=== PATIENT | female | born 1965 | race Caucasian/White ===

== ENCOUNTER 2024-06-13 17:59 | Inpatient (IN) ==
--- NOTE | 2024-06-13 18:14 | Emergency Department Note ---
Impression & Plan Anemia ADMIT ED Provider Note HPI: History obtained from patient. The patient is a 58-year-old female who presents the emergency department with a chief complaint of dyspnea on exertion for about the past month. Patient states that she has a chronic smoking history but the remainder of her health history is largely unknown because she does not follow with a doctor. Patient denies any chest pain and states that she has not had any chest pain with her episodes of dyspnea on exertion during this time. On arrival here to the ED the patient is tachycardic and moderately hypertensive, she is saturating well on room air, patient is afebrile on arrival. ROS: - Per HPI Differential Diagnosis: Acute CHF exacerbation, ACS, pulmonary embolism, pulmonary edema, pleural effusion, lung cancer, COPD with acute exacerbation, viral upper respiratory infection, bronchitis, amongst other potential pathologies. *Outpatient medications and allergy history reviewed. PE: General: Alert HEENT: Normocephalic, trachea midline Eyes: Extraocular eye movement is intact, no scleral erythema Pulmonary: Clear to auscultation bilaterally, no wheezing Cardio: Tachycardic rate with regular rhythm GI: Abdomen is soft to palpation, rectal examination performed with female RN at the bedside shows evidence of external hemorrhoids without any active bleeding, occult stool testing is positive : No suprapubic tenderness MSK: No evidence of trauma or malformation of the extremities, no edema Skin: No evidence of rash Neuro: Alert, no focal deficits Psychiatric: Cooperative INDEPENDENT INTERPRETATIONS: traffic monitor specialist: (As interpreted by myself): - An order was placed for continuous cardiac monitoring - Patient was noted to be in sinus rhythm with a rate of 108 EKG: (As interpreted by myself): Rate: 110 Rhythm: Sinus tachycardia Intervals: Within normal limits ST changes: No ST elevation Time: 1816 Chest x-ray: (As interpreted by myself): No acute disease Interventions provided in ED: -IV Protonix bolus and drip, packed red blood cell transfusion Medical Decision Making: IV was established and lab work obtained, patient was placed on compliance monitor. Lab work shows no leukocytosis, hemoglobin is low at 5.3, MCV is also low at 66, platelet count is elevated at 622, venous blood gas shows a normal pH, CMP does not show any critical findings, bilirubin is normal, renal function is normal, viral panel testing is pending at the time of admission. I do not see any evidence of any acute infiltrate on chest x-ray. On reassessment following the result of the patient's hemoglobin she does tell me that she has had some blood per rectum over the past month intermittently. I suspect this is the source of her anemia. Patient was consented for packed red blood cell transfusion given hemoglobin less than 7.0. She was also started on a Protonix drip and bolus. I discussed the patient's presentation with the on-call hospitalist, Dr. Quiñones, and the patient was accepted for inpatient care. Patient's D-dimer did return mildly elevated at 550 however with age adjustment this is negative, I also do not feel that PE is the likely diagnosis and I feel her symptoms are more likely secondary to symptomatic anemia. Patient was in agreement for admission, I discussed all of this with the patient and with her niece at the bedside. Patient was placed for admission in stable condition. Consultants/Discussions held with other healthcare providers: -Hospitalist, Dr. Quiñones Disposition discussion held by myself with: -Patient and patient's niece at the bedside Critical care time: 43 minutes -Stabilization of patient with critically low hemoglobin less than 7.0 and tachycardia requiring packed red blood cell transfusion, interpretation of diagnostic studies, discussion with other healthcare providers and arrangement of admission Diagnosis: 1. Symptomatic anemia, acute 2. Lower GI bleeding, acute Disposition: Admission Jerel Gary DO Emergency Medicine Past Med/Surg History Problem List (Updated 06/13/24 @ 19:56 by Jerel Gary DO) Anemia (Acute) Social History Smoking Status: Never smoker Feels Safe at Home: Yes Results & Data (ED) Vital Signs Vital Signs - 24 hr 06/13/24 18:04 06/13/24 18:10 06/13/24 18:18 Temperature 36.6 C Temperature Source Skin Pulse Rate 119 H Pulse Rate [Right Finger] 108 H Pulse Rhythm Regular Pulse Rhythm [Right Finger] Regular Pulse Strength Normal Pulse Strength [Right Finger] Normal Respiratory Rate 20 26 H Respiratory Effort / Characteristics Non-Labored Spontaneous Non-Labored Non-Labored Respiratory Depth Normal Normal Normal Respiratory Pattern Regular Regular Regular Blood Pressure 162/89 H Blood Pressure [Right Arm] 153/98 H Blood Pressure Mean 113 Blood Pressure Mean [Right Arm] 116 Pulse Oximetry 100 100 Oxygen Delivery Method Room Air Room Air Sepsis Recent Fever Within 48 Hours No Sepsis New/Unexplained Change in Mental Status N/A Sepsis Action Taken by Nursing No Action Required 06/13/24 18:21 Temperature Temperature Source Pulse Rate 107 H Pulse Rate [Right Finger] Pulse Rhythm Pulse Rhythm [Right Finger] Pulse Strength Pulse Strength [Right Finger] Respiratory Rate Respiratory Effort / Characteristics Respiratory Depth Respiratory Pattern Blood Pressure Blood Pressure [Right Arm] Blood Pressure Mean Blood Pressure Mean [Right Arm] Pulse Oximetry Oxygen Delivery Method Sepsis Recent Fever Within 48 Hours Sepsis New/Unexplained Change in Mental Status Sepsis Action Taken by Nursing Laboratory Data 06/13/24 18:25 06/13/24 18:25 Lab Results 06/13/24 06/13/24 06/13/24 Range/Units 18:25 18:37 18:54 WBC 7.31 (4.8-10.8) K/ul RBC 2.92 L (4.20-5.40) M/uL Hgb 5.3 L* (12.0-16.0) g/dl Hct 19.3 L* (37.0-47.0) % MCV 66.1 L (80.0-100.0) fL MCH 18.2 L (25.0-34.0) pg MCHC 27.5 L (32.0-36.0) g/dL RDW Std Deviation 51.9 H (36.4-46.3) fL RDW Coeff of Naya 22.1 H (11.5-14.5) % Plt Count 622 H (130-400) K/uL MPV 8.8 L (9.4-12.4) fL Absolute Nucleated RBC 0.02 (0.00-0.12) K/uL Nucleated RBC % (auto) 0.3 % Neutrophils % (Manual) 74 % Lymphocytes % (Manual) 16 % Monocytes % (Manual) 5 % Eosinophils % (Manual) 3 % Basophils % (Manual) 2 % Neutrophils # (Manual) 5.41 (1.40-6.50) K/uL Total Absolute Neuts 5.41 (1.4-6.5) K/uL Lymphocytes # (Manual) 1.17 L (1.2-3.4) K/uL Total Abs Lymphocytes 1.17 L (1.2-3.4) K/uL Monocytes # (Manual) 0.37 (0.11-0.59) K/uL Eosinophils # (Manual) 0.22 (0-0.50) K/uL Basophils # (Manual) 0.15 (0-0.2) K/uL Polychromasia 1+ Hypochromasia Present Anisocytosis Present Microcytosis Present Stomatocytes 1+ PT 9.9 (9.0-12.0) Seconds INR 0.9 (0.9-1.1) D-Dimer 550 H* (0-500) ug/L FEU VBG pH 7.37 (7.36-7.41) VBG pCO2 40 (38-50) mmHg VBG pO2 26 mmHg VBG HCO3 23 mmol/L VBG O2 Saturation < 60.0 % VBG Base Excess -2.0 mEq/L Sodium 139 (136-145) mmol/L Potassium 3.3 L (3.5-5.1) mmol/L Chloride 107 (98-107) mmol/L Carbon Dioxide 25 (21-32) mmol/L Anion Gap 7 (3-11) BUN 12 (6-23) mg/dl Creatinine 0.65 (0.6-1.2) mg/dl Est Cr Clr Drug Dosing 78.0 ml/min eGFR 103.27 BUN/Creatinine Ratio 18.5 (10-20) Glucose 106 H (70-99(Fasting)) mg/dl Calcium 8.8 (8.6-10.3) mg/dl Total Bilirubin 0.4 (0.2-1.0) mg/dl AST 17 (13-39) U/L ALT 12 (7-52) U/L Alkaline Phosphatase 71 (34-104) U/L Troponin I High Sens 4.8 (0-14) pg/ml B-Natriuretic Peptide 54 (0-100) pg/ml Total Protein 7.0 (6.0-8.3) gm/dl Albumin 4.4 (3.4-5.0) gm/dl Globulin 2.6 (2.5-4.0) gm/dl Albumin/Globulin Ratio 1.7 (0.9-2) Blood Type O Positive Blood Type Recheck Antibody Screen NEGATIVE Crossmatch See Detail 06/13/24 Range/Units 18:55 WBC (4.8-10.8) K/ul RBC (4.20-5.40) M/uL Hgb (12.0-16.0) g/dl Hct (37.0-47.0) % MCV (80.0-100.0) fL MCH (25.0-34.0) pg MCHC (32.0-36.0) g/dL RDW Std Deviation (36.4-46.3) fL RDW Coeff of Naya (11.5-14.5) % Plt Count (130-400) K/uL MPV (9.4-12.4) fL Absolute Nucleated RBC (0.00-0.12) K/uL Nucleated RBC % (auto) % Neutrophils % (Manual) % Lymphocytes % (Manual) % Monocytes % (Manual) % Eosinophils % (Manual) % Basophils % (Manual) % Neutrophils # (Manual) (1.40-6.50) K/uL Total Absolute Neuts (1.4-6.5) K/uL Lymphocytes # (Manual) (1.2-3.4) K/uL Total Abs Lymphocytes (1.2-3.4) K/uL Monocytes # (Manual) (0.11-0.59) K/uL Eosinophils # (Manual) (0-0.50) K/uL Basophils # (Manual) (0-0.2) K/uL Polychromasia Hypochromasia Anisocytosis Microcytosis Stomatocytes PT (9.0-12.0) Seconds INR (0.9-1.1) D-Dimer (0-500) ug/L FEU VBG pH (7.36-7.41) VBG pCO2 (38-50) mmHg VBG pO2 mmHg VBG HCO3 mmol/L VBG O2 Saturation % VBG Base Excess mEq/L Sodium (136-145) mmol/L Potassium (3.5-5.1) mmol/L Chloride (98-107) mmol/L Carbon Dioxide (21-32) mmol/L Anion Gap (3-11) BUN (6-23) mg/dl Creatinine (0.6-1.2) mg/dl Est Cr Clr Drug Dosing ml/min eGFR BUN/Creatinine Ratio (10-20) Glucose (70-99(Fasting)) mg/dl Calcium (8.6-10.3) mg/dl Total Bilirubin (0.2-1.0) mg/dl AST (13-39) U/L ALT (7-52) U/L Alkaline Phosphatase (34-104) U/L Troponin I High Sens (0-14) pg/ml B-Natriuretic Peptide (0-100) pg/ml Total Protein (6.0-8.3) gm/dl Albumin (3.4-5.0) gm/dl Globulin (2.5-4.0) gm/dl Albumin/Globulin Ratio (0.9-2) Blood Type Blood Type Recheck O Positive Antibody Screen Crossmatch Administered Medications Discontinued Medications Pantoprazole Sodium 80 mg/ (Dextrose) 120 mls @ 480 mls/hr IV NOW ONE Stop: 06/13/24 19:20 Last Admin: 06/13/24 19:29 Dose: 480 mls/hr Documented By: MONIQUE Pantoprazole Sodium (Pantoprazole Bolus/Drip) 1 each IV NOW STA Stop: 06/13/24 19:07 Last Admin: 06/13/24 19:33 Dose: 1 each Documented By: MONIQUE Imaging Data Radiologist's Impression: Chest X-Ray 06/13/24 18:12 EXAM: XR chest 1V portable CLINICAL HISTORY: DYSPNEA KIS/HJB TECHNIQUE: An X-ray image of the chest is obtained in AP portable projection. COMPARISON: No prior studies are available for comparison. FINDINGS: Pulmonary Parenchyma: Accentuated vascular markings. No evidence of consolidation, collapse, or focal opacities. No pulmonary nodules are identified. No evidence of pleural effusion or pleural thickening. Heart and Mediastinum: Heart size and shape are normal. No mediastinal widening or masses. Prominent hilar vascular shadows. Bony Thorax: The bony thorax appears intact without fractures or deformities. Soft Tissues: Soft tissues overlying the chest wall are unremarkable. IMPRESSION: Accentuated vascular markings with prominent hilar vascular shadows. Correlate with clinical findings. Electronically signed by Cullen Vera 06-13-2024 7:14 PM Discharge Plan Visit Data Chief Complaint: Shortness of Breath/Dyspnea Stated Complaint: SOB, RAPID HEART BEAT, HEADACHES ED Provider: Jerel Gary Discharge Problem: Anemia Forms Stand Alone Forms: [facility] Referrals Referrals: PCP,NO [Primary Care Provider] -
[2024-06-13 18:42] LABS: HCO3 VBG 23 mmol/L; Oxygen Saturation VBG < 60.0 %; PCO2 VBG 40 mmHg (38-50); PO2 VBG 26 mmHg; pH VBG 7.37 (7.36-7.41)
[2024-06-13] MEDS ORDERED: SODIUM CHLORIDE 0.9% 50 ML IV PRN ×2 (18:42→21:03)
[2024-06-13 18:44] LABS: Hematocrit (blood only) 19.3 % (37.0-47.0); Hemoglobin 5.3 g/dl (12.0-16.0); Mean Corpuscular Hemoglobin 18.2 pg (25.0-34.0); Mean Corpuscular Hgb Conc 27.5 g/dL (32.0-36.0); Mean Corpuscular Volume 66.1 fL (80.0-100.0); Mean Platelet Volume 8.8 fL (9.4-12.4); Nucleated RBC # (auto) 0.02 K/uL (0.00-0.12); Nucleated RBC % (auto) 0.3 %; Platelet Count 622 K/uL (130-400); RDW Coefficient of Variation 22.1 % (11.5-14.5); RDW Standard Deviation 51.9 fL (36.4-46.3); Red Blood Count 2.92 M/uL (4.20-5.40); White Blood Count 7.31 K/ul (4.8-10.8)
[2024-06-13 18:57] LABS: Albumin Globulin Ratio 1.7 (0.9-2); Albumin Level 4.4 gm/dl (3.4-5.0); BUN Creatinine Ratio 18.5 (10-20); Bilirubin,Total 0.4 mg/dl (0.2-1.0); Calcium 8.8 mg/dl (8.6-10.3); Globulin 2.6 gm/dl (2.5-4.0); Potassium 3.3 mmol/L (3.5-5.1)
[2024-06-13 19:01] LABS: ALC (manual) 1.17 K/uL (1.2-3.4); ANC (manual) 5.41 K/uL (1.4-6.5); Anisocytosis Present; Basophils # (manual) 0.15 K/uL (0-0.2); Basophils % (manual) 2 %; Eosinophils # (manual) 0.22 K/uL (0-0.50); Eosinophils % (manual) 3 %; Hypochromasia Present; Lymphocytes # (manual) 1.17 K/uL (1.2-3.4); Lymphocytes % (manual) 16 %; Microcytosis Present; Monocytes # (manual) 0.37 K/uL (0.11-0.59); Monocytes % (manual) 5 %; Neutrophils # (manual) 5.41 K/uL (1.40-6.50); Neutrophils % (manual) 74 %; Polychromasia 1+; Stomatocytes 1+
[2024-06-13 19:03] LABS: Troponin I High Sensitivity 4.8 pg/ml (0-14)
[2024-06-13 19:06] LABS: INR 0.9 (0.9-1.1); Prothrombin Time 9.9 Seconds (9.0-12.0)
--- NOTE | 2024-06-13 19:15 | XRay Report ---
EXAM: XR chest 1V portable CLINICAL HISTORY: DYSPNEA KIS/HJB TECHNIQUE: An X-ray image of the chest is obtained in AP portable projection. COMPARISON: No prior studies are available for comparison. FINDINGS: Pulmonary Parenchyma: Accentuated vascular markings. No evidence of consolidation, collapse, or focal opacities. No pulmonary nodules are identified. No evidence of pleural effusion or pleural thickening. Heart and Mediastinum: Heart size and shape are normal. No mediastinal widening or masses. Prominent hilar vascular shadows. Bony Thorax: The bony thorax appears intact without fractures or deformities. Soft Tissues: Soft tissues overlying the chest wall are unremarkable. IMPRESSION: Accentuated vascular markings with prominent hilar vascular shadows. Correlate with clinical findings. Electronically signed by Cullen Vera 06-13-2024 7:14 PM
[2024-06-13 19:17] LABS: D Dimer 550 ug/L FEU (0-500)
[2024-06-13 19:27] LABS: Adenovirus PCR Not Detected (NotDetected); Bordetella parapertussis PCR Not Detected (NotDetected); Bordetella pertussis PCR Not Detected (NotDetected); Chlamydia pneumoniae PCR Not Detected (NotDetected); Coronavirus 229E PCR Not Detected (NotDetected); Coronavirus CoV-2 (COVID19)PCR Not Detected (NotDetected); Coronavirus HKU1 PCR Not Detected (NotDetected); Coronavirus NL63 PCR Not Detected (NotDetected); Coronavirus OC43PCR Not Detected (NotDetected); Human Metapneumovirus PCR Not Detected (NotDetected); Influenza A PCR Not Detected (NotDetected); Influenza B PCR Not Detected (NotDetected); Mycoplasma pneumoniae PCR Not Detected (NotDetected); Parainfluenza Virus 1 PCR Not Detected (NotDetected); Parainfluenza Virus 2 PCR Not Detected (NotDetected); Parainfluenza Virus 3 PCR Not Detected (NotDetected); Parainfluenza Virus 4 PCR Not Detected (NotDetected); Respiratory Syncytial VirusPCR Not Detected (NotDetected); Rhinovirus/Enterovirus PCR DETECTED (NotDetected)
[2024-06-13] MEDS: PANTOprazole 80 MG in DEXTROSE 5% 100 ML IV ONE (19:29)
[2024-06-13] MEDS: PANTOPRAZOLE BOLUS/DRIP IV STA (19:33)
[2024-06-13] MEDS: PANTOprazole 40 MG in DEXTROSE 5% MINI-B 100 ML IV SCH (19:59)
--- NOTE | 2024-06-13 20:10 | History & Physical Report ---
Date of Service June 13, 2024 Assessment & Plan (1) Anemia: Plan: - presenting with Hgb= 5.3, ordered 2 units pRBC in the ED - presumed GI bleed with melena/blood BMs x 1 years-> likely slow bleed - will put in an additional 1 unit pRBC on hold - transfusion threshold 7 - currently mildly tachycardia, not hypotensive - consult GI; NPO pending eval - trend q6 H&H - iron studies pending - CT A&P with IV at Oral contrast pending (2) Thrombocytosis: Plan: - plts= 622 - likely secondary to the setting of anemia - continue to trend (3) Tobacco use: Plan: - 30+ packs years - nicotine patch ordered (4) Hypokalemia: Plan: - K= 3.3; replete x 20mg IV KCl - continue to trend (5) Elevated d-dimer: Plan: - d-dimer= 550 - age adjusted cut off- 560-> VTE unlikely (6) Rhinovirus: Plan: - asymptomatic - droplet precuations Plan Has not seen a doctor in 30 years-> fasting lipi d panel and hemoglobin a1c pending qAM Diet: NPO pending GI eval Code: Full Vte Prophylaxis: defer chemical given presumed GI bleed/anemia, SCD Dispo: PCU History of Present Illness Primary Care Provider: NO PCP 58 year old female presenting with progressive dyspnea. She states that for over a year she has been having both dark and bloody stools. Over the past month has started to noticed increased dyspnea with exertion and lightheadedness. Niece encouraged her to come to the ER today to be evaluated. Denies abdominal pain, nausea/vomiting. Denies chest pain. Has not been to a doctor in over 30 years. Only medication/supplement she takes is Tylenol prn for headaches. Notes that she had a hysterectomy in her 30s and a C Section- but not other past surgical/medical history. 30+ year pack history- currently smoking 1 pack per day. Denies any other substance/alcohol use. Denies NSAID use. Denies family history of colon cancer, IBD. ED Course Significant for: Hbg= 5.3, Plts= 622, K= 3.3, D Dimer= 550. EKG with sinus tachycardia HR 110s, no acute ischemic changes. Allergies Allergy/AdvReac Type Severity Reaction Status Date / Time No Known Allergies Allergy Unverified 06/13/24 21:12 Past Med/Surg History Problem List Rhinovirus Elevated d-dimer Hypokalemia Tobacco use Thrombocytosis Anemia (Acute) Surgical History History of H/O: hysterectomy Social History Smoking Status: Current every day smoker Tobacco Type: Cigarettes Age Started Using Tobacco: 15; packs per day: 0.5; Cigarettes Per Day: 1-1/2 pack; Hx Alcohol Use: No Hx Substance Use: No Preferred Language: Citizen Of [place] Communication Ability: Effective Section Laborer Required: No Beliefs That Will Affect Care: None Current Living Situation: Spouse Other Information That Helps Us Care for You: No Feels Safe at Home: Yes Safety Concerns: Feels Safe At This Time Assistive Devices: None Review of Systems Review of Systems: As per above Physical Exam Physical Exam: Constitutional: well-appearing, no acute distress HEENT: NCAT, no conjunctival injection CV: regular rhythm, no murmur appreciated, extremities well-perfused, no LE edema Resp: CTABL, no wheezes/rales/rhonchi appreciated, no increased work of breathing GI: soft, nondistended, nontender MSK: no gross deformities appreciated Skin: warm, dry, no rash appreciated Neuro: alert, oriented, no focal neurologic deficit appreciated Results & Data Results & Data Vital Signs (Past 12 Hours) Vital Signs Temp Pulse Pulse Resp BP BP Pulse Ox 06/13/24 18:21 107 H 06/13/24 18:18 108 H 26 H 153/98 H 100 06/13/24 18:04 36.6 C 119 H 20 162/89 H 100 O2 Del Method 06/13/24 18:21 06/13/24 18:18 Room Air 06/13/24 18:04 Room Air Laboratory Results Laboratory Results WBC 7.31 K/ul (4.8-10.8) 06/13/24 18:25 RBC 2.92 M/uL (4.20-5.40) L 06/13/24 18:25 Hgb 5.3 g/dl (12.0-16.0) L* 06/13/24 18:25 Hct 19.3 % (37.0-47.0) L* 06/13/24 18:25 MCV 66.1 fL (80.0-100.0) L 06/13/24 18:25 MCH 18.2 pg (25.0-34.0) L 06/13/24 18: MCHC 27.5 g/dL (32.0-36.0) L 06/13/24 18: RDW Std Deviation 51.9 fL (36.4-46.3) H 06/13/24 18: RDW Coeff of Naya 22.1 % (11.5-14.5) H 06/13/24 18: Plt Count 622 K/uL (130-400) H 06/13/24 18:25 MPV 8.8 fL (9.4-12.4) L 06/13/24 18: Absolute Nucleated RBC 0.02 K/uL (0.00-0.12) 06/13/24 18: Nucleated RBC % (auto) 0.3 % 06/13/24 18:25 Neutrophils % (Manual) 74 % 06/13/24 18:25 Lymphocytes % (Manual) 16 % 06/13/24 18:25 Monocytes % (Manual) 5 % 06/13/24 18:25 Eosinophils % (Manual) 3 % 06/13/24 18:25 Basophils % (Manual) 2 % 06/13/24 18:25 Neutrophils # (Manual) 5.41 K/uL (1.40-6.50) 06/13/24 18:25 Total Absolute Neuts 5.41 K/uL (1.4-6.5) 06/13/24 18: Lymphocytes # (Manual) 1.17 K/uL (1.2-3.4) L 06/13/24 18:25 Total Abs Lymphocytes 1.17 K/uL (1.2-3.4) L 06/13/24 18:25 Monocytes # (Manual) 0.37 K/uL (0.11-0.59) 06/13/24 18: Eosinophils # (Manual) 0.22 K/uL (0-0.50) 06/13/24 18:25 Basophils # (Manual) 0.15 K/uL (0-0.2) 06/13/24 18:25 Polychromasia 1+ 06/13/24 18:25 Hypochromasia Present 06/13/24 18:25 Anisocytosis Present 06/13/24 18:25 Microcytosis Present 06/13/24 18:25 Stomatocytes 1+ 06/13/24 18:25 PT 9.9 Seconds (9.0-12.0) 06/13/24 18:25 INR 0.9 (0.9-1.1) 06/13/24 18:25 D-Dimer 550 ug/L FEU (0-500) H* 06/13/24 18:25 VBG pH 7.37 (7.36-7.41) 06/13/24 18:37 VBG pCO2 40 mmHg (38-50) 06/13/24 18:37 VBG pO2 26 mmHg 06/13/24 18:37 VBG HCO3 23 mmol/L 06/13/24 18:37 VBG O2 Saturation < 60.0 % 06/13/24 18:37 VBG Base Excess -2.0 mEq/L 06/13/24 18:37 Sodium 139 mmol/L (136-145) 06/13/24 18:25 Potassium 3.3 mmol/L (3.5-5.1) L 06/13/24 18:25 Chloride 107 mmol/L (98-107) 06/13/24 18:25 Carbon Dioxide 25 mmol/L (21-32) 06/13/24 18:25 Anion Gap 7 (3-11) 06/13/24 18:25 BUN 12 mg/dl (6-23) 06/13/24 18:25 Creatinine 0.65 mg/dl (0.6-1.2) 06/13/24 18:25 Est Cr Clr Drug Dosing 78.0 ml/min 06/13/24 18:25 eGFR 103.27 06/13/24 18:25 BUN/Creatinine Ratio 18.5 (10-20) 06/13/24 18:25 Glucose 106 mg/dl (70-99(Fasting)) H 06/13/24 18:25 Calcium 8.8 mg/dl (8.6-10.3) 06/13/24 18:25 Total Bilirubin 0.4 mg/dl (0.2-1.0) 06/13/24 18:25 AST 17 U/L (13-39) 06/13/24 18:25 ALT 12 U/L (7-52) 06/13/24 18:25 Alkaline Phosphatase 71 U/L (34-104) 06/13/24 18:25 Troponin I High Sens 4.8 pg/ml (0-14) 06/13/24 18: B-Natriuretic Peptide 54 pg/ml (0-100) 06/13/24 18:25 Total Protein 7.0 gm/dl (6.0-8.3) 06/13/24 18:25 Albumin 4.4 gm/dl (3.4-5.0) 06/13/24 18: Globulin 2.6 gm/dl (2.5-4.0) 06/13/24 18: Albumin/Globulin Ratio 1.7 (0.9-2) 06/13/24 18:25 Urine Color Yellow 06/13/24 Unknown Urine Appearance Clear (Clear) 06/13/24 Unknown Urine pH 5.5 (4.5-7.5) 06/13/24 Unknown Ur Specific [place] 1.009 (1.000-1.030) 06/13/24 Unknown Urine Protein Negative (Negative) 06/13/24 Unknown Urine Glucose (UA) Negative (Negative) 06/13/24 Unknown Urine Ketones Negative (Negative) 06/13/24 Unknown Urine Blood Negative (Negative) 06/13/24 Unknown Urine Nitrite Negative (Negative) 06/13/24 Unknown Urine Bilirubin Negative (Negative) 06/13/24 Unknown Urine Urobilinogen Negative (Negative) 06/13/24 Unknown Ur Leukocyte Esterase Negative (Negative) 06/13/24 Unknown Adenovirus (PCR) Not Detected (NotDetected) 06/13/24 18:20 B. pertussis DNA (PCR) Not Detected (NotDetected) 06/13/24 18:20 B.parapertussis DNA PCR Not Detected (NotDetected) 06/13/24 18:20 C. pneumoniae DNA (PCR) Not Detected (NotDetected) 06/13/24 18:20 Coronavirus OC43 (PCR) Not Detected (NotDetected) 06/13/24 18:20 Coronavirus HKU1 (PCR) Not Detected (NotDetected) 06/13/24 18:20 Coronavirus 229E (PCR) Not Detected (NotDetected) 06/13/24 18:20 SARS-CoV-2 (PCR) Not Detected (NotDetected) 06/13/24 18:20 Coronavirus NL63 (PCR) Not Detected (NotDetected) 06/13/24 18:20 Human Metapneumovir PCR Not Detected (NotDetected) 06/13/24 18:20 Influenza Type A (PCR) Not Detected (NotDetected) 06/13/24 18:20 Influenza Type B (PCR) Not Detected (NotDetected) 06/13/24 18:20 M. pneumoniae (PCR) Not Detected (NotDetected) 06/13/24 18:20 Parainfluenza 1 (PCR) Not Detected (NotDetected) 06/13/24 18:20 Parainfluenza 2 (PCR) Not Detected (NotDetected) 06/13/24 18:20 Parainfluenza 3 (PCR) Not Detected (NotDetected) 06/13/24 18:20 Parainfluenza 4 (PCR) Not Detected (NotDetected) 06/13/24 18:20 RSV (PCR) Not Detected (NotDetected) 06/13/24 18:20 Entero/Rhino (PCR) DETECTED (NotDetected) A 06/13/24 18:20 Blood Type O Positive 06/13/24 18:54 Blood Type Recheck O Positive 06/13/24 18:55 Antibody Screen NEGATIVE 06/13/24 18:54 Crossmatch See Detail 06/13/24 18:54 Impressions Chest X-Ray 06/13/24 18:12 EXAM: XR chest 1V portable CLINICAL HISTORY: DYSPNEA KIS/HJB TECHNIQUE: An X-ray image of the chest is obtained in AP portable projection. COMPARISON: No prior studies are available for comparison. FINDINGS: Pulmonary Parenchyma: Accentuated vascular markings. No evidence of consolidation, collapse, or focal opacities. No pulmonary nodules are identified. No evidence of pleural effusion or pleural thickening. Heart and Mediastinum: Heart size and shape are normal. No mediastinal widening or masses. Prominent hilar vascular shadows. Bony Thorax: The bony thorax appears intact without fractures or deformities. Soft Tissues: Soft tissues overlying the chest wall are unremarkable. IMPRESSION: Accentuated vascular markings with prominent hilar vascular shadows. Correlate with clinical findings. Electronically signed by Cullen Vera 06-13-2024 7:14 PM Supervising Physician Co-Signing Physician Notes Patient seen and examined, chart reviewed, case discussed with Dr. Urbina and I agree with the assessment and plan as above. Patient with longstanding history of melenic and BRBPR Symptomatic anemia on presentation requiring transfusion On exam patient is resting comfortably +pallor +S1/S2, regular, no m/r/g Lungs CTA Abd soft, NT/ND Ext - warm, well perfused Labs and images reviewed, microcytic hypochromic anemia CT Abdomen/Pelvis pending Assessment/Plan -Transfusion as above -GI consult -CT abdomen pelvis pending -Routine screening including A1C and lipids -Patient is scheduled to establish with PCP in [place] -Remainder as above Resident Activity Tracking Resident Involvement: Resident Care Provided Care Provided: Adult Hospital Medicine
[2024-06-13] MEDS: NICOTINE 21 MG/24 HR TDSY TD SCH (20:48)
[2024-06-13] MEDS ORDERED: SODIUM CHLORIDE 0.9% 100 ML IV PRN (21:03)
[2024-06-13] MEDS: Patient's ALLERGY Info needs ENTERED STA (21:37)
[2024-06-13] MEDS: POTASSIUM CHLORIDE / WTR 10 MEQ/100 ML PLCT IV SCH (21:37)
[2024-06-13 21:40] LABS: Appearance Urine Clear (Clear); Bilirubin Urine Negative (Negative); Blood Urine Negative (Negative); Color Urine Yellow; Glucose Urine UA Negative (Negative); Ketones Urine Negative (Negative); Leukocyte Esterase Urine Negative (Negative); Nitrite Urine Negative (Negative); Protein Urine Negative (Negative); Specific Gravity Urine 1.009 (1.000-1.030); Urobilinogen Urine Negative (Negative); pH Urine 5.5 (4.5-7.5)
[2024-06-13] MEDS: SODIUM CHLORIDE 0.9% 100 ML IV PRN (22:11)
--- NOTE | 2024-06-14 01:48 | Billing Data ---
Date of Service June 13, 2024 Coding Level of Care Code 63511 INT INP/OBS CARE
[2024-06-14 02:16] LABS: Hematocrit (blood only) 26.3 % (37.0-47.0); Hemoglobin 7.7 g/dl (12.0-16.0)
[2024-06-14 02:21] LABS: BUN Creatinine Ratio 13.8 (10-20); Calcium 8.5 mg/dl (8.6-10.3); Creatinine Clr Calc Pharmacy 87.6 ml/min; Potassium 3.8 mmol/L (3.5-5.1)
[2024-06-14 02:40] LABS: Ferritin 2.8 ng/ml (8-388)
[2024-06-14 02:54] LABS: Chol HDL Ratio 2.1 (0-5)
[2024-06-14 07:46] LABS: Hematocrit (blood only) 26.8 % (37.0-47.0)
[2024-06-14 07:48] LABS: Estimated Average Glucose 126 mg/dl
--- NOTE | 2024-06-14 08:32 | Hospitalist Progress Note ---
Date of Service June 14, 2024 Assessment & Plan (1) Anemia: Plan: Patient with longstanding history of melenic and BRBPR, presented with dyspnea on exertion Symptomatic anemia on presentation requiring transfusion Symptomatic iron deficiency anemia. ferritin 2.8/7% sat -transfused 2 units RBCs Hg 5.3-->8 - will order 200 mg of iron sucrose Acute on chronic gastrointestinal bleeding - based on H/H trend seems to be slow, remains tachycardic but improved -CT abdomen and pelvis with contrast was ordered by admitting team -PPI drip, serial H/H -consulted gastroenterology - reviewed recs in note, EGD/colonoscopy tomorrow tachycardia improved but persists - check TSH - normal (2) Thrombocytosis: Plan: - plts= 622 Caused by iron deficiency anemia (3) Tobacco use: Plan: - 30+ packs years - nicotine patch ordered (4) Hypokalemia: Plan: replaced, 3.8 today (5) Rhinovirus: Plan: - asymptomatic - droplet precuations Plan Has not seen a doctor in 30 years-> fasting lipid panel ok and hemoglobin a1c 6.0% -discussed prediabetes with her Vte Prophylaxis: SCD recently in process to enroll in medicaid working on establish PCP in [place] Admission and Anticipated Discharge Date Admission Date: June 13, 2024 Subjective Has had intermittent bloody stool without abdominal pain for up to a year. She thinks its her hemorrhoids but by description sometimes its maroon Has had dark stools but not vicky melena dyspnea and lightheadedness improved after transfusion Physical Exam 2 Physical Exam: PHYSICAL EXAMINATION Last 24h vital signs reviewed, see documentation in flowsheet General: comfortable appearing, no distress HEENT: Normocephalic, atraumatic, pupils round and equal, sclerae anicteric, no conjunctival injection, moist mucus membranes Lungs: Normal respiratory effort. Clear to auscultation bilaterally. No RRW Heart: Regular rate and rhythm, no murmurs. No JVD Abdomen: Soft, nontender, nondistended. Bowel sounds present. Extremities: Warm, dry, well-perfused. No extremity edema. Neuro: Alert and oriented x 4, face symmetric, moves 4 extremities well Psych: Normal affect and behavior Results & Data Results & Data Vital Signs (Past 12 Hours) Vital Signs Temp Pulse Pulse Resp BP BP BP 06/14/24 07:38 98.1 F 94 H 20 153/94 H 06/14/24 03:21 98.1 F 103 H 18 125/74 06/14/24 00:28 97.7 F 99 H 20 133/74 06/14/24 00:17 97.9 F 97 H 18 149/82 H 06/13/24 23:17 97.7 F 103 H 20 142/81 H 06/13/24 22:54 06/13/24 22:47 98.1 F 102 H 20 152/90 H 06/13/24 22:32 98.2 F 100 H 21 150/88 H 06/13/24 22:18 101 H 06/13/24 22:16 98.1 F 104 H 22 06/13/24 22:09 98.1 F 99 H 22 149/85 H 06/13/24 21:14 110 H 06/13/24 21:10 98.1 F 110 H 16 162/90 H 06/13/24 20:40 98.2 F 110 H 30 H 133/79 06/13/24 20:25 98.2 F 108 H 29 H 134/79 Pulse Ox O2 Del Method 06/14/24 07:38 99 Room Air 06/14/24 03:21 97 Room Air 06/14/24 00:28 99 06/14/24 00:17 100 06/13/24 23:17 98 06/13/24 22:54 Room Air 06/13/24 22:47 98 06/13/24 22:32 100 06/13/24 22:18 06/13/24 22:16 99 06/13/24 22:09 98 06/13/24 21:14 06/13/24 21:10 100 06/13/24 20:40 100 06/13/24 20:25 100 Laboratory Results 06/14/24 05:25 06/14/24 01:37 PG Care Time/CCT Total # of Minutes Spent Total Time Spent with Patient: Total time spent is greater than 50% in coordination of care (as documented) at patient's floor/unit and/or counseling patient: Coding Level of Care Code 08403 SUB INP/OBS CARE 3/50MIN Diagnoses Anemia D64.9 Thrombocytosis D75.839 Tobacco use Z72.0 Hypokalemia E87.6 Rhinovirus B34.8
[2024-06-14] MEDS ORDERED: NICOTINE 21 MG/24 HR TDSY TD SCH (09:00)
[2024-06-14] MEDS: OPTIRAY 320 100ml IV ONE (09:57)
--- NOTE | 2024-06-14 10:16 | CT Scan Report ---
EXAM: CT Abdomen and Pelvis With Intravenous Contrast INDICATION: Anemia. TECHNIQUE: Axial computed tomography images of the abdomen and pelvis with intravenous contrast. Sagittal and coronal reformatted images were created and reviewed. This CT exam was performed using one or more of the following dose reduction techniques: automated exposure control, adjustment of the mA and/or kV according to patient size, and/or use of iterative reconstruction technique. Oral contrast was administered. CONTRAST: 90 ml of Optiray 320 was administered intravenously. COMPARISON: No relevant prior studies available. FINDINGS: Limitations: None. Lung bases: No abnormality noted. Pleural space: No visualized pleural effusion or pneumothorax. Heart: No abnormality noted. Mediastinum: No abnormality noted. ABDOMEN: Liver: The liver is enlarged to 20.6 cm that is mildly fatty. Smooth contour. No ductal dilatation. Gallbladder and bile ducts: No calcified stones or surrounding fluid. Pancreas: Homogeneous enhancement. No mass, inflammation or ductal dilation. Spleen: No significant abnormality noted. Adrenals: No significant abnormality noted. Kidneys and ureters: Normal enhancement. No mass, hydronephrosis or visualized stone. Stomach and bowel: Normal appearance of the collapsed stomach. There are multiple sigmoid diverticula. There is mild diverticulitis of an antimesenteric surface diverticulum in the sigmoid colon seen on series 3 image 263. Colonic mucosal masses are not optimally detected in the presence of stool. There is a polypoid soft tissue density in the sigmoid turn which measures 1 cm-series 3 image 225. No intestinal obstruction. PELVIS: Appendix: Well seen and appears normal. Bladder: No filling defects to suggest mass or large stone. No inflammation. Reproductive: Hysterectomy. ABDOMEN and PELVIS: Intraperitoneal space: No free air. No significant fluid collection. Bones/joints: There is degenerative change in the spine. There is slightly asymmetric to the left disc herniation at L5-S1 with l impingement on the origin of the left S1 nerve root. Soft tissues: No significant abnormality noted. Vasculature: Minimal atherosclerotic plaque in the aorta and branches. No aneurysm or dissection. Lymph nodes: No pathologically enlarged lymph nodes. IMPRESSION: 1. There is mild acute sigmoid diverticulitis without complication. 2. Detection of colonic mucosal masses limited in the presence of stool. There could be a polyp versus adherent stool in the sigmoid turn. Colonic screening recommended if not recently performed. 3. Hepatomegaly and mild steatosis. ACT 112: Negative or not required by law. Electronically signed by Haylie Murrell 06-14-2024 10:16 AM
--- NOTE | 2024-06-14 10:53 | Gastrointestinal Consultation ---
Date of Consultation June 14, 2024 Assessment & Plan (1) Anemia: 58-year-old female presenting with symptoms related to iron deficiency anemia. The patient does have a very low MCV which suggest that this may be a chronic process. I think it would be prudent to proceed with upper endoscopy and colon oscopy. Based on her symptoms I wonder about a colonic etiology such as a mass or polyp Plan 1) Upper endoscopy Saturday 2) Colonoscopy Saturday 3) N.p.o. at midnight 4) May have clear liquids today 4) Bowel preparation written History of Present Illness Reason for Consultation: Anemia Requesting Physician: Dr. Lin Attending Physician: Jeanie Lin MD History of Present Illness The patient is a 58-year-old female with a long history of tobacco use who presented to the emergency room with worsening fatigue and shortness of breath. She notes that she has had symptoms of irregular bowel habits, she has had dark Stool without stickiness in addition to occasional episodes of hematochezia. This has been ongoing for at least 12 months. The patient has never had an upper endoscopy nor colonoscopy. Her past surgical history is notable for a C- section. There is no family history of stomach cancer or colon cancer. She denies having fevers chills sweats or any significant weight loss. Allergies Allergy/AdvReac Type Severity Reaction Status Date / Time No Known Allergies Allergy Unverified 06/13/24 21:12 Patient History Surgical History History of H/O: hysterectomy Social History Smoking Status: Current every day smoker Tobacco Type: Cigarettes Age Started Using Tobacco: 15; packs per day: 0.5; Cigarettes Per Day: 1-1/2 pack; Hx Alcohol Use: No Hx Substance Use: No Preferred Language: Maltese Communication Ability: Effective Rehab Office Coordinator Required: No Beliefs That Will Affect Care: None Current Living Situation: Spouse Other Information That Helps Us Care for You: No Feels Safe at Home: Yes Safety Concerns: Feels Safe At This Time Assistive Devices: None Review of Systems Constitutional: + malaise; no fever, no sweats and no we ight loss Eyes: no diplopia Ear, Nose, Mouth, Throat: no foul smell and no mouth lesions Respiratory: + dyspnea on exertion; no cough, no hemo ptysis and no wheezing Cardiovascular: + dyspnea on exertion; no chest pain wit h activity Gastrointestinal: no abdominal pain, no bloating, no early satiety, no nausea, no coffee ground emesis, no hematemesis and no dysphagia Neurologic: no falls Endocrine: no polydipsia and no cold intolerance Hematologic / Lymphatic: no easy bleeding, no coagulopathy and no unexplained weight loss Physical Exam Constitutional: + thin; no acute distress Eyes: PERRL, conjunctivae normal, anicteric sclerae ENMT: external ear and nose normal, oropharynx normal Respiratory: normal respiratory effort, lungs clear to auscultation Cardiovascular: Rate/Rhythm: regular rate and regular rhythm Gastrointestinal (Abdomen): normal bowel sounds, soft, nontender, no hepatosplenomegaly Results & Data Vital Signs (Past 12 Hours) Vital Signs Temp Pulse Pulse Resp BP BP BP 06/14/24 07:38 36.7 C 94 H 20 153/94 H 06/14/24 03:21 36.7 C 103 H 18 125/74 06/14/24 00:28 36.5 C 99 H 20 133/74 06/14/24 00:17 36.6 C 97 H 18 149/82 H 06/13/24 23:17 36.5 C 103 H 20 142/81 H 06/13/24 22:54 06/13/24 22:47 36.7 C 102 H 20 152/90 H Pulse Ox O2 Del Method 06/14/24 07:38 99 Room Air 06/14/24 03:21 97 Room Air 06/14/24 00:28 99 06/14/24 00:17 100 06/13/24 23:17 98 06/13/24 22:54 Room Air 06/13/24 22:47 98 Laboratory Results Laboratory Results - last 24 hr 06/13/24 06/13/24 06/13/24 18:20 18:25 18:37 WBC 7.31 RBC 2.92 L Hgb 5.3 L* Hct 19.3 L* MCV 66.1 L MCH 18.2 L MCHC 27.5 L RDW Std Deviation 51.9 H RDW Coeff of Naya 22.1 H Plt Count 622 H MPV 8.8 L Absolute Nucleated RBC 0.02 Nucleated RBC % (auto) 0.3 Neutrophils % (Manual) 74 Lymphocytes % (Manual) 16 Monocytes % (Manual) 5 Eosinophils % (Manual) 3 Basophils % (Manual) 2 Neutrophils # (Manual) 5.41 Total Absolute Neuts 5.41 Lymphocytes # (Manual) 1.17 L Total Abs Lymphocytes 1.17 L Monocytes # (Manual) 0.37 Eosinophils # (Manual) 0.22 Basophils # (Manual) 0.15 Polychromasia 1+ Hypochromasia Present Anisocytosis Present Microcytosis Present Stomatocytes 1+ PT 9.9 INR 0.9 D-Dimer 550 H* VBG pH 7.37 VBG pCO2 40 VBG pO2 26 VBG HCO3 23 VBG O2 Saturation < 60.0 VBG Base Excess -2.0 Sodium 139 Potassium 3.3 L Chloride 107 Carbon Dioxide 25 Anion Gap 7 BUN 12 Creatinine 0.65 Est Cr Clr Drug Dosing 78.0 eGFR 103.27 BUN/Creatinine Ratio 18.5 Glucose 106 H Estimat Average Glucose Hemoglobin A1c Calcium 8.8 Iron TIBC Unsaturated IBC Transferrin % Sat Ferritin Total Bilirubin 0.4 AST 17 ALT 12 Alkaline Phosphatase 71 Troponin I High Sens 4.8 B-Natriuretic Peptide 54 Total Protein 7.0 Albumin 4.4 Globulin 2.6 Albumin/Globulin Ratio 1.7 Triglycerides Cholesterol LDL Cholesterol, Calc VLDL Cholesterol, Calc HDL Cholesterol Cholesterol/HDL Ratio TSH Urine Color Urine Appearance Urine pH Ur Specific [place] Urine Protein Urine Glucose (UA) Urine Ketones Urine Blood Urine Nitrite Urine Bilirubin Urine Urobilinogen Ur Leukocyte Esterase Adenovirus (PCR) Not Detected B. pertussis DNA (PCR) Not Detected B.parapertussis DNA PCR Not Detected C. pneumoniae DNA (PCR) Not Detected Coronavirus OC43 (PCR) Not Detected Coronavirus HKU1 (PCR) Not Detected Coronavirus 229E (PCR) Not Detected SARS-CoV-2 (PCR) Not Detected Coronavirus NL63 (PCR) Not Detected Human Metapneumovir PCR Not Detected Influenza Type A (PCR) Not Detected Influenza Type B (PCR) Not Detected M. pneumoniae (PCR) Not Detected Parainfluenza 1 (PCR) Not Detected Parainfluenza 2 (PCR) Not Detected Parainfluenza 3 (PCR) Not Detected Parainfluenza 4 (PCR) Not Detected RSV (PCR) Not Detected Entero/Rhino (PCR) DETECTED A Blood Type Blood Type Recheck Antibody Screen Crossmatch 06/13/24 06/13/24 06/13/24 18:54 18:55 Unknown WBC RBC Hgb Hct MCV MCH MCHC RDW Std Deviation RDW Coeff of Naya Plt Count MPV Absolute Nucleated RBC Nucleated RBC % (auto) Neutrophils % (Manual) Lymphocytes % (Manual) Monocytes % (Manual) Eosinophils % (Manual) Basophils % (Manual) Neutrophils # (Manual) Total Absolute Neuts Lymphocytes # (Manual) Total Abs Lymphocytes Monocytes # (Manual) Eosinophils # (Manual) Basophils # (Manual) Polychromasia Hypochromasia Anisocytosis Microcytosis Stomatocytes PT INR D-Dimer VBG pH VBG pCO2 VBG pO2 VBG HCO3 VBG O2 Saturation VBG Base Excess Sodium Potassium Chloride Carbon Dioxide Anion Gap BUN Creatinine Est Cr Clr Drug Dosing eGFR BUN/Creatinine Ratio Glucose Estimat Average Glucose Hemoglobin A1c Calcium Iron TIBC Unsaturated IBC Transferrin % Sat Ferritin Total Bilirubin AST ALT Alkaline Phosphatase Troponin I High Sens B-Natriuretic Peptide Total Protein Albumin Globulin Albumin/Globulin Ratio Triglycerides Cholesterol LDL Cholesterol, Calc VLDL Cholesterol, Calc HDL Cholesterol Cholesterol/HDL Ratio TSH Urine Color Yellow Urine Appearance Clear Urine pH 5.5 Ur Specific [place] 1.009 Urine Protein Negative Urine Glucose (UA) Negative Urine Ketones Negative Urine Blood Negative Urine Nitrite Negative Urine Bilirubin Negative Urine Urobilinogen Negative Ur Leukocyte Esterase Negative Adenovirus (PCR) B. pertussis DNA (PCR) B.parapertussis DNA PCR C. pneumoniae DNA (PCR) Coronavirus OC43 (PCR) Coronavirus HKU1 (PCR) Coronavirus 229E (PCR) SARS-CoV-2 (PCR) Coronavirus NL63 (PCR) Human Metapneumovir PCR Influenza Type A (PCR) Influenza Type B (PCR) M. pneumoniae (PCR) Parainfluenza 1 (PCR) Parainfluenza 2 (PCR) Parainfluenza 3 (PCR) Parainfluenza 4 (PCR) RSV (PCR) Entero/Rhino (PCR) Blood Type O Positive Blood Type Recheck O Positive Antibody Screen NEGATIVE Crossmatch See Detail 06/14/24 06/14/24 01:37 05:25 WBC RBC Hgb 7.7 L 8.0 L Hct 26.3 L 26.8 L MCV MCH MCHC RDW Std Deviation RDW Coeff of Naya Plt Count MPV Absolute Nucleated RBC Nucleated RBC % (auto) Neutrophils % (Manual) Lymphocytes % (Manual) Monocytes % (Manual) Eosinophils % (Manual) Basophils % (Manual) Neutrophils # (Manual) Total Absolute Neuts Lymphocytes # (Manual) Total Abs Lymphocytes Monocytes # (Manual) Eosinophils # (Manual) Basophils # (Manual) Polychromasia Hypochromasia Anisocytosis Microcytosis Stomatocytes PT INR D-Dimer VBG pH VBG pCO2 VBG pO2 VBG HCO3 VBG O2 Saturation VBG Base Excess Sodium 137 Potassium 3.8 Chloride 109 H Carbon Dioxide 19 L Anion Gap 9 BUN 8 Creatinine 0.58 L Est Cr Clr Drug Dosing 87.6 eGFR 106.14 BUN/Creatinine Ratio 13.8 Glucose 155 H Estimat Average Glucose 126 Hemoglobin A1c 6.0 H Calcium 8.5 L Iron 34 L TIBC 501 H Unsaturated IBC 467 H Transferrin % Sat 7 L Ferritin 2.8 L Total Bilirubin AST ALT Alkaline Phosphatase Troponin I High Sens B-Natriuretic Peptide Total Protein Albumin Globulin Albumin/Globulin Ratio Triglycerides 61 Cholesterol 141 LDL Cholesterol, Calc 63 VLDL Cholesterol, Calc 12 HDL Cholesterol 66 Cholesterol/HDL Ratio 2.1 TSH 1.884 Urine Color Urine Appearance Urine pH Ur Specific [place] Urine Protein Urine Glucose (UA) Urine Ketones Urine Blood Urine Nitrite Urine Bilirubin Urine Urobilinogen Ur Leukocyte Esterase Adenovirus (PCR) B. pertussis DNA (PCR) B.parapertussis DNA PCR C. pneumoniae DNA (PCR) Coronavirus OC43 (PCR) Coronavirus HKU1 (PCR) Coronavirus 229E (PCR) SARS-CoV-2 (PCR) Coronavirus NL63 (PCR) Human Metapneumovir PCR Influenza Type A (PCR) Influenza Type B (PCR) M. pneumoniae (PCR) Parainfluenza 1 (PCR) Parainfluenza 2 (PCR) Parainfluenza 3 (PCR) Parainfluenza 4 (PCR) RSV (PCR) Entero/Rhino (PCR) Blood Type Blood Type Recheck Antibody Screen Crossmatch Diagnostic Findings CT 06/13/24 IMPRESSION: 1. There is mild acute sigmoid diverticulitis without complication. 2. Detection of colonic mucosal masses limited in the presence of stool. There could be a polyp versus adherent stool in the sigmoid turn. Colonic screening recommended if not recently performed. 3. Hepatomegaly and mild steatosis.
--- NOTE | 2024-06-14 12:12 | Electrocardiogram Report ---
Test Reason : Blood Pressure : */* mmHG Vent. Rate : 110 BPM Atrial Rate : 110 BPM P-R Int : 138 ms QRS Dur : 78 ms QT Int : 326 ms P-R-T Axes : 74 68 9 degrees QTcB Int : 441 ms Sinus tachycardia Possible Left atrial enlargement Nonspecific ST and T wave abnormality Abnormal ECG No previous ECGs available Confirmed by Donato Sol ([id number]) on 06/14/2024 12:11:41 PM Referred By: REFERRED SELF Confirmed By: Donato Sol
[2024-06-14] MEDS: AMOXICILLIN/CLAVULANATE 875 MG TAB PO SCH (12:44)
[2024-06-14] MEDS: IRON SUCROSE 200 MG in SODIUM CHLORIDE 0.9% 100 ML IV ONE (14:51)
[2024-06-14] MEDS ORDERED: LAVAGE SOLUTION 4000ML PO SCH (15:00)
[2024-06-14] MEDS: LAVAGE SOLUTION 4000ML PO SCH (17:33)
[2024-06-14] MEDS: guaiFENesin/DEXTROM SYRUP 100MG/10MG 5ML UDC PO PRN (19:32)
[2024-06-15 06:22] LABS: Hematocrit (blood only) 28.8 % (37.0-47.0); Hemoglobin 8.6 g/dl (12.0-16.0); Mean Corpuscular Hemoglobin 20.9 pg (25.0-34.0); Mean Corpuscular Hgb Conc 29.9 g/dL (32.0-36.0); Mean Corpuscular Volume 70.1 fL (80.0-100.0); Mean Platelet Volume 9.2 fL (9.4-12.4); Nucleated RBC # (auto) 0.02 K/uL (0.00-0.12); Nucleated RBC % (auto) 0.3 %; Platelet Count 513 K/uL (130-400); RDW Coefficient of Variation 25.2 % (11.5-14.5); RDW Standard Deviation 60.9 fL (36.4-46.3); Red Blood Count 4.11 M/uL (4.20-5.40); White Blood Count 7.45 K/ul (4.8-10.8)
--- NOTE | 2024-06-15 08:18 | Gastroenterology Progress Note ---
Date of Service June 15, 2024 Assessment & Plan (1) Anemia: Plan: 58 year old female with history of tobacco use admitted w/ progressive dyspnea and report of black/bloody stools x 1 year admitted w/ severe anemia, HGB of 5.3 s/p 2 units RBC w/ HGB of 8.6. - Maintain NPO status for EGD/Colonoscopy today - She is positive for entero/rhinovirus and will need to be the last case of the day as she remains on droplet precautions - Trend H&H - Monitor and document GI output - Transfuse per primary service We appreciate assistance in the management of any serological abnormality and corrections to include: hemoglobin >7, INR <2, platelets >50,000, potassium levels >3.5 but <5.3, and sodium levels within 5 points of the reference range prior to endoscopic evaluation. Thank you for allowing us to participate in the care of this patient. Please call with any acute changes, questions or concerns. Please see addendum below with additional recommendation from my supervising physician. Admission and Anticipated Discharge Date Admission Date: June 13, 2024 Supervising Physician Co-Signing Physician Notes I saw and examined this patient with our nurse practitioner and agree with her assessment and plan. Laboratory data consistent with iron deficiency anemia. Possible history of GI bleeding over the year. Proceed with endoscopy and colonoscopy to exclude significant luminal pathology. Subjective Pt was seen and evaluated, chart reviewed. Endorses clear, liquid stools. Reports with bowel prep she did see some BRB on toilet tissue. Denies any black or bloody stools. Denies abd pain, nausea/vomiting. HGB 5.3 --> 2 units --> 8.6 Review of Systems Review of Systems: All other findings negative except as noted in HPI. Physical Exam Constitutional: WD/WN, vitals as above Respiratory: normal respiratory effort Cardiovascular: Rate/Rhythm: regular rate Skin: no rashes, warm and dry Results & Data Results & Data Vital Signs (Past 12 Hours) Vital Signs Temp Pulse Pulse Resp BP Pulse Ox O2 Del Method 06/15/24 07:00 37.1 C 102 H 20 144/87 H 96 Room Air 06/15/24 03:59 37.0 C 95 H 18 150/95 H 95 Room Air 06/14/24 23:24 100 H 06/14/24 22:35 36.8 C 101 H 19 162/92 H 97 Room Air 06/14/24 20:28 Room Air Laboratory Results 06/15/24 06/14/24 Range/Units 05:58 05:25 WBC 7.45 (4.8-10.8) K/ul RBC 4.11 L (4.20-5.40) M/uL Hgb 8.6 L (12.0-16.0) g/dl Hct 28.8 L (37.0-47.0) % MCV 70.1 L D (80.0-100.0) fL MCH 20.9 L (25.0-34.0) pg MCHC 29.9 L (32.0-36.0) g/dL RDW Std Deviation 60.9 H (36.4-46.3) fL RDW Coeff of Naya 25.2 H (11.5-14.5) % Plt Count 513 H (130-400) K/uL MPV 9.2 L (9.4-12.4) fL Absolute Nucleated RBC 0.02 (0.00-0.12) K/uL Nucleated RBC % (auto) 0.3 % TSH 1.884 (0.300-4.500) uIu/ml PG Care Time/CCT Total # of Minutes Spent Total Time Spent with Patient: Total time spent is greater than 50% in coordination of care (as documented) at patient's floor/unit and/or counseling patient: Coding Level of Care Code None Diagnoses Anemia D64.9
--- NOTE | 2024-06-15 08:53 | Anesthesiology Consultation ---
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 Víctor Renee MD Height/Weight Height: 5 ft Weight: 58.3 kg Allergies Allergy/AdvReac Type Severity Reaction Status Date / Time No Known Allergies Allergy Unverified 06/14/24 17:20 Medications Home Medications Medication Instructions Recorded Confirmed Last Taken No Known Home Medications 06/14/24 06/14/24 Unknown Active Medications Generic Name Dose Route Start Last Admin Trade Name Freq PRN Reason Stop Dose Admin Amoxicillin/Clavulanate Potassium 1 tab 06/14/24 10:50 06/15/24 08:43 Amoxicillin/Clavulanate 875 Mg Tab PO 06/24/24 10:49 1 tab BIDM SHRUTHI Administration Protocol Guaifenesin/Dextromethorphan 5 ml 06/14/24 18:54 06/14/24 19:32 Guaifenesin/Dextrom Syrup 100mg/10mg 5ml Udc PO 07/14/24 18:53 5 ml Q6H PRN Administration Cough Pantoprazole Sodium 40 mg/ 100 mls @ 20 mls/hr 06/13/24 19:30 06/15/24 05:22 Dextrose IV 07/13/24 19:29 8 mg/hr Q5H SHRUTHI 20 mls/hr Administration 8 MG/HR Miscellaneous 1 each 06/14/24 08:59 06/15/24 08:43 Remove Nicoderm Patch N/A 07/14/24 08:58 1 each DAILY@0859 SHRUTHI Administration Nicotine 1 patch 06/13/24 20:40 06/15/24 08:43 Nicotine 21 Mg/24 Hr Tdsy TD 07/13/24 20:39 1 patch DAILY SHRUTHI Administration Past Surgical History Surgical History History of H/O: hysterectomy Social History Smoking Status: Current every day smoker Smoking cigarettes per day: 1-1/2 pack Hx Alcohol Use: No Hx Substance Use: No substance use type: does not use Physical Exam Vital Signs Last Vital Signs Temp 37.1 C 06/15/24 07:00 Pulse 102 H 06/15/24 07:00 Resp 20 06/15/24 07:00 BP 144/87 H 06/15/24 07:00 Pulse Ox 96 06/15/24 07:00 O2 Del Method Room Air 06/15/24 07:00 Testing Laboratory Results 06/15/24 05:58 06/14/24 01:37 PT 9.9 Seconds (9.0-12.0) 06/13/24 18:25 INR 0.9 (0.9-1.1) 06/13/24 18:25 Hemoglobin A1c 6.0 % (4.5-5.6) H 06/14/24 01:37 Urine Color Yellow 06/13/24 Unknown Urine Appearance Clear (Clear) 06/13/24 Unknown Urine pH 5.5 (4.5-7.5) 06/13/24 Unknown Ur Specific [place] 1.009 (1.000-1.030) 06/13/24 Unknown Urine Protein Negative (Negative) 06/13/24 Unknown Urine Glucose (UA) Negative (Negative) 06/13/24 Unknown Urine Ketones Negative (Negative) 06/13/24 Unknown Urine Nitrite Negative (Negative) 06/13/24 Unknown Ur Leukocyte Esterase Negative (Negative) 06/13/24 Unknown Blood Type O Positive 06/13/24 18:54 Antibody Screen NEGATIVE 06/13/24 18:54 Electrocardiogram Date: 06/13/24 DICTATED BY: Donato Sol MD Test Reason : Blood Pressure : */* mmHG Vent. Rate : 110 BPM Atrial Rate : 110 BPM P-R Int : 138 ms QRS Dur : 78 ms QT Int : 326 ms P-R-T Axes : 74 68 9 degrees QTcB Int : 441 ms Sinus tachycardia Possible Left atrial enlargement Nonspecific ST and T wave abnormality Abnormal ECG No previous ECGs available Confirmed by Donato Sol ([id number]) on 06/14/2024 12:11:41 PM Chest X-Ray Date: 06/13/24 EXAM: XR chest 1V portable CLINICAL HISTORY: DYSPNEA KIS/HJB TECHNIQUE: An X-ray image of the chest is obtained in AP portable projection. COMPARISON: No prior studies are available for comparison. FINDINGS: Pulmonary Parenchyma: Accentuated vascular markings. No evidence of consolidation, collapse, or focal opacities. No pulmonary nodules are identified. No evidence of pleural effusion or pleural thickening. Heart and Mediastinum: Heart size and shape are normal. No mediastinal widening or masses. Prominent hilar vascular shadows. Bony Thorax: The bony thorax appears intact without fractures or deformities. Soft Tissues: Soft tissues overlying the chest wall are unremarkable. IMPRESSION: Accentuated vascular markings with prominent hilar vascular shadows. Correlate with clinical findings. Electronically signed by Cullen Vera 06-13-2024 7:14 PM
[2024-06-15] MEDS ORDERED: ONDANSETRON INJ 2 MG/ML 2 ML VIAL IV PRN (11:38)
[2024-06-15] MEDS: PROCHLORPERAZINE MALEATE 5 MG TAB PO ONE (12:01)
[2024-06-15] MEDS: SUMAtriptan succinate 50 MG TAB PO ONE (12:01)
[2024-06-15] MEDS: BUTALBITAL/ACETAMIN/CAFFEINE TAB PO STA (12:01)
--- NOTE | 2024-06-15 13:31 | GI REPORT ---
[facility] Patient: ZULEYMA PIMENTEL : 1965 Sex at : Female Age: 58 Years Procedure: Colonoscopy Date: 06/15/2024 Attending Physician: Diego Renee MD Referring MD: Referred Self; Jeanie Lin Md Indications: - Iron deficiency anemia Medications: - Monitored Anesthesia Care Complications: - No immediate complications. Procedure: - Prior to the procedure, a History and Physical was performed, and patient medications and allergies were reviewed. The patient's tolerance of previous anesthesia was also reviewed. The risks and benefits of the procedure and the sedation options and risks were discussed with the patient. All questions were answered, and informed consent was obtained. [Anticoagulant Agents] [Days Prior to Procedure]. [ASA Grade]. After reviewing the risks and benefits, the patient was deemed in satisfactory condition to undergo the procedure. - The adult colonoscope was introduced through the anus and advanced to the terminal ileum, with identification of the appendiceal orifice and ileocecal valve. - The colonoscopy was performed without difficulty. - The patient tolerated the procedure well. - The quality of the bowel preparation was [Prep Quality]. - [Anatomical Structures] photographed. Findings: - The perianal and digital rectal examinations were normal. - A 10 mm polyp was found in the descending colon. The polyp was sessile. [Resection & Retrieval]. The polyp was removed with a hot snare. Resection was complete, and retrieval was complete. To prevent bleeding after the polypectomy, one hemostatic clip was successfully placed. - A 25 mm polyp was found in the sigmoid colon. The polyp was pedunculated. [Method]. [Resection & Retrieval]. The polyp was removed with a hot snare. Resection was complete, and retrieval was complete. To prevent bleeding after the polypectomy, two hemostatic clips were successfully placed. - A few diverticula were found in the sigmoid colon. - The terminal ileum appeared normal. - No other significant abnormalities were identified in a careful examination of the remainder of the colon. Impression: - One 10 mm polyp in the descending colon, removed with a hot snare. Resected and retrieved. Clip was placed. - One 25 mm polyp in the sigmoid colon, removed with a hot snare. Resected and retrieved. Clips were placed. - Diverticulosis in the sigmoid colon. - The examined portion of the ileum was normal. Recommendation: - Await pathology results. - Resume previous diet. - Repeat colonoscopy in 3 years for surveillance. - Patient has a contact number available for emergencies. The signs and symptoms of potential delayed complications were discussed with the patient. Return to normal activities tomorrow. Written discharge instructions were provided to the patient. Procedure Code(s): - 87693, Colonoscopy, flexible; with removal of tumor(s), polyp(s), or other lesion(s) by snare technique Diagnosis Code(s): - D12.4, Benign neoplasm of descending colon - D12.5, Benign neoplasm of sigmoid colon - K57.30, Diverticulosis of large intestine without perforation or abscess without bleeding CPT(R) - 2023 copyright [employer]. All Rights Reserved. The CPT codes, CCI edits and ICD codes generated are intended as suggestions and were generated based on input data. These codes are preliminary and upon feeder worker power unit operator review may be revised to meet current compliance and payer requirements. The provider is responsible for the final determination of appropriate codes, and modifiers. Diego Renee MD This document has been electronically signed. Note Initiated:06/15/2024 Note Completed:06/15/2024 1:30 PM \\[email or web address]\Central\[email or web address]\Data\Provation\Results\LIVE\[id number].pdf
--- NOTE | 2024-06-15 13:33 | GI REPORT ---
[facility] Patient: ZULEYMA PIMENTEL : 1965 Sex at : Female Age: 58 Years Procedure: Upper GI endoscopy Date: 06/15/2024 Attending Physician: Diego Renee MD Referring MD: Jeanie Lin Md Indications: - Iron deficiency anemia Medications: - Monitored Anesthesia Care Complications: - No immediate complications. Procedure: - Prior to the procedure, a History and Physical was performed, and patient medications and allergies were reviewed. The patient's tolerance of previous anesthesia was also reviewed. The risks and benefits of the procedure and the sedation options and risks were discussed with the patient. All questions were answered, and informed consent was obtained. [Anticoagulant Agents] [Days Prior to Procedure]. [ASA Grade]. After reviewing the risks and benefits, the patient was deemed in satisfactory condition to undergo the procedure. - The egd scope was introduced through the mouth and advanced to the second part of the duodenum. - The upper GI endoscopy was accomplished without difficulty. - The patient tolerated the procedure well. Findings: - The examined esophagus and gastroesophageal junction were normal. Biopsies were taken with a cold forceps for histology. - The gastric body and gastric antrum were normal. Biopsies were taken with a cold forceps for Helicobacter pylori testing. - The examined duodenum was normal. Biopsies for histology were taken with a cold forceps for evaluation of celiac disease. Impression: - Normal esophagus and gastroesophageal junction. Biopsied. - Normal gastric body and antrum. Biopsied. - Normal examined duodenum. Biopsied. Recommendation: - Resume previous diet. - Patient has a contact number available for emergencies. The signs and symptoms of potential delayed complications were discussed with the patient. Return to normal activities tomorrow. Written discharge instructions were provided to the patient. Procedure Code(s): - 47294, Esophagogastroduodenoscopy, flexible, transoral; with biopsy, single or multiple CPT(R) - 2023 copyright [employer]. All Rights Reserved. The CPT codes, CCI edits and ICD codes generated are intended as suggestions and were generated based on input data. These codes are preliminary and upon sow manager review may be revised to meet current compliance and payer requirements. The provider is responsible for the final determination of appropriate codes, and modifiers. Diego Renee MD This document has been electronically signed. Note Initiated:06/15/2024 Note Completed:06/15/2024 1:33 PM \\[email or web address]\Central\InterfaceData\Data\Provation\Results\LIVE\[id number].pdf
--- NOTE | 2024-06-15 14:02 | Anesthesiology Progress Note ---
Date of Service June 15, 2024 Anesthesia Post Procedure Vital Signs Vital Signs: Temp Pulse Pulse Resp BP BP Pulse Ox 06/15/24 13:52 89 16 132/82 99 06/15/24 13:36 85 16 135/86 99 06/15/24 13:22 76 18 136/81 100 06/15/24 12:30 36.7 C 97 H 16 153/96 H 97 06/15/24 11:10 36.8 C 102 H 20 157/90 H 96 06/15/24 10:02 06/15/24 07:33 102 H 06/15/24 07:00 37.1 C 102 H 20 144/87 H 96 06/15/24 03:59 37.0 C 95 H 18 150/95 H 95 06/14/24 23:24 100 H 06/14/24 22:35 36.8 C 101 H 19 162/92 H 97 06/14/24 20:28 06/14/24 19:14 36.9 C 98 H 19 152/93 H 98 06/14/24 15:10 36.5 C 99 H 20 173/84 H 99 O2 Del Method 06/15/24 13:52 Room Air 06/15/24 13:36 Room Air 06/15/24 13:22 Room Air 06/15/24 12:30 Room Air 06/15/24 11:10 Room Air 06/15/24 10:02 Room Air 06/15/24 07:33 06/15/24 07:00 Room Air 06/15/24 03:59 Room Air 06/14/24 23:24 06/14/24 22:35 Room Air 06/14/24 20:28 Room Air 06/14/24 19:14 Room Air 06/14/24 15:10 Room Air Transfer of Care Handoff Completed per policy Notes Mental Status: alert / awake / arousable and participated in evaluation Patient Amnestic to Procedure: Yes Nausea / Vomiting: adequately controlled Pain: adequately controlled Airway Patency, RR, SpO2: stable & adequate BP & HR: stable & adequate Hydration State: stable & adequate Anesthetic Complications: no major complications apparent
[2024-06-15] MEDS: LIDOCAINE 2% 2 ML VIAL/AMP(20MG/ML) INFIL ONE ×2 (14:16)
[2024-06-15] MEDS: PROPOFOL IV EMULSION 10 MG/ML 20 ML VIAL IV ONE ×2 (14:16)
[2024-06-15 14:39] VITALS: PULSE 81; RESP 20; TEMP 98.2; O2SAT 98
[2024-06-15 14:55] VITALS: BP 135/86
--- NOTE | 2024-06-15 15:18 | Discharge Summary ---
Discharge Summary Date of Service June 15, 2024 Principal Dx & Hospital Course #1 = Principal Diagnosis (1) Anemia: Patient with longstanding history of dark stools and episodes of BRBPR for over a year which she attributes to hemorrhoids, presented with dyspnea on exertion. found to be severely anemic with hemoglobin of 5.3 and heme positive stool. She had not seen a physician for 30 years, recently signed up for state health insurance at the urging of her family is in the process of establishing with a local [facility] Symptomatic iron deficiency anemia. ferritin 2.8/7% sat -transfused 2 units RBCs Hg 5.3-->8, given 200 mg IV iron sucrose - ferrous sulfate every other day for discharge - recommend repeat CBC and iron panel in about a month and primary care Acute on chronic gastrointestinal bleeding - based on H/H trend seems to be slow, was tachycardic on admission that improved with IV fluids and blood transfusion -CT abdomen and pelvis with contrast was ordered by admitting team - showed a mild sigmoid diverticulitis and a possible polyp - treated with PPI drip, serial H&H remained stable after transfusion, no significant melena or bleeding this admission, she did have some mild hemorrhoidal bleeding -consulted gastroenterology - EGD/colonoscopy completed 06/15. EGD was unremarkable and biopsies of stomach for H. pylori and small bowel for celiac disease were taken. Colonoscopy was remarkable for 2 polyps which were removed, pathology pending. No active bleeding in the GI tract - retail merchandising manager recommended discharge with daily omeprazole, follow-up in GI clinic for pathology, if persistent anemia consider capsule study - PT/INR were normal on 06/13, PTT ordered by retail merchandising manager today is pending I will follow this up sinus tachycardia eventually resolved and TSH was normal (2) Thrombocytosis: - plts= 622 Caused by iron deficiency anemia (3) Tobacco use: - 30+ packs years - nicotine patch ordered - counseled cessation (4) Hypokalemia: replaced (5) Rhinovirus: mildly symptomatic, supportive care Plan Has not seen a doctor in 30 years-> fasting lipid panel ok and hemoglobin a1c 6.0% -discussed prediabetes with her, recommended healthy diet, weight loss, exercise working on establish PCP in [place] Admission HPI Per Admitting Provider 58 year old female presenting with progressive dyspnea. She states that for over a year she has been having both dark and bloody stools. Over the past month has started to noticed increased dyspnea with exertion and lightheadedness. Niece encouraged her to come to the ER today to be evaluated. Denies abdominal pain, nausea/vomiting. Denies chest pain. Has not been to a doctor in over 30 years. Only medication/supplement she takes is Tylenol prn for headaches. Notes that she had a hysterectomy in her 30s and a C Section- but not other past surgical/medical history. 30+ year pack history- currently smoking 1 pack per day. Denies any other substance/alcohol use. Denies NSAID use. Denies family history of colon cancer, IBD. ED Course Significant for: Hbg= 5.3, Plts= 622, K= 3.3, D Dimer= 550. EKG with sinus tachycardia HR 110s, no acute ischemic changes. Discharge Exam PHYSICAL EXAMINATION Last 24h vital signs reviewed, see documentation in flowsheet General: comfortable appearing, no distress HEENT: Normocephalic, atraumatic, pupils round and equal, sclerae anicteric, no conjunctival injection, moist mucus membranes Lungs: Normal respiratory effort. Clear to auscultation bilaterally. No RRW Heart: Regular rate and rhythm, no murmurs. No JVD Abdomen: Soft, nontender, nondistended. Bowel sounds present. Extremities: Warm, dry, well-perfused. No extremity edema. Neuro: Alert and oriented x 4, face symmetric, moves 4 extremities well Psych: Normal affect and behavior Discharge Plan Discharge Items Patient Disposition: Home - Self-Care Reason For Visit: ANEMIA Discharge Diagnosis: Anemia, chronic gastrointestinal bleeding, colon polyps Activity: Resume your previous activity Non-emergency contact: Primary Care Provider Call non-emergency contact if: you have any medication questions and your symptoms worsen Follow-up/Referrals: PCP,NO [Primary Care Provider] - Diet: Regular Addtl Attending Provider Instructions: You were treated for severe anemia which seems to have been related to frequent gastrointestinal bleeding which caused severe iron deficiency You were transfused with two units of blood and also IV iron You're still anemic and iron supplement will help resolve this: Ferrous sulfate 325 mg every other day - this is available over the counter You had EGD and colonoscopy - the EGD part was normal and biopsies were taken to check for things like H. pylori infection and celiac disease. The colonoscopy had two polyps which were removed and the pathology is pending -retail merchandising manager recommends omeprazole (prilosec) - it may be less expensive to buy this over the counter -follow up in gastroenterology clinic - they should be calling you to schedule -colonoscopy in 3 years for polyps You've got a rhinovirus infection - a "common cold" - this will resolve You have mild diverticulitis based on CT scan of the abdomen - this is a common condition where a part of the colon wall gets inflamed -we are treating this with a course of oral antibiotics For you hemorrhoids it may help to take a fiber supplement (like metamucil or citrucel) every day to help soften and bulk up your stool. If you're constipated you can also use miralax and/or senna as directed. These m edications are available over the counter. The goal with hemorrhoids is to have very soft stools (like toothpaste) with no straining, to prevent flare-ups and bleeding. Other tests: kidney function panel - normal cholesterol panel - normal, not elevated TSH - thyroid function - was normal HgA1c - test for average blood sugar - 6.0% indicating some "prediabetes" - you're at risk for developing diabetes in the future this is reversible with healthy diet (emphasizing lean meats, whole grains, vegetables or a "Mediterranean" type diet), exercise, and even a small amount of weight loss Follow up to establish primary care as soon as possible It was a pleasure taking care of you in the hospital, Jeanie Lin MD Pending Studies at Discharge: Yes (biopsy results from EGD and colonoscopy) Stand-Alone Forms: My [facility] [email or web address], Smoking Cessation Medications and DC Order Prescriptions: New amoxicillin-pot clavulanate 875-125 mg Tablet 1 tab PO BIDM Qty: 14 0RF omeprazole 40 mg capsule,delayed release(DR/EC) 40 mg PO DAILY Qty: 30 0RF Rx Instructions: may buy over the counter if less expensive ferrous sulfate 325 mg (65 mg iron) tablet,delayed release (DR/EC) 325 mg PO Q OTHER DAY Qty: 30 0RF Rx Instructions: may buy over the counter Discharge Orders: Discharge Order (Routine); Ordered 06/15/24 Ordered By: Jeanie Macias/Other Patient Handouts: Prediabetes, 5 Steps for Eating Healthier Admission Data Admit Date/Time: 06/13/24 20:10 Attending Provider: Jeanie Lin Admit Provider: Grecia Urbina Primary Care Provider: PCP,NO Other Providers: Christine Quiñones; Ankit Marquez Other Interventions: Discharge Summary Assessment (RN) Last Done: 06/15/24 13:53 Hospital Stay Data Consultations 06/13/24 19:29 ED Decision to Admit Stat 06/13/24 20:09 Consult Gastroenterology Routine Procedures Performed Operation Date: 06/15/24 16:30 Actual Procedures p EGD Biopsy Cytology - Diego Renee MD s Colonoscopy Polypectomy - Diego Renee MD Diagnostic Imagining Performed 06/13/24 21:00 CT Abd and Pelvis [CT abd pelvis oral and IV con] Routine Pending Results Patient Have Any Pending Studies at Discharge: Yes (biopsy results from EGD and colonoscopy) Discharge Instructions Given to Patient (Per Discharging Provider) You were treated for severe anemia which seems to have been related to frequent gastrointestinal bleeding which caused severe iron deficiency You were transfused with two units of blood and also IV iron You're still anemic and iron supplement will help resolve this: Ferrous sulfate 325 mg every other day - this is available over the counter You had EGD and colonoscopy - the EGD part was normal and biopsies were taken to check for things like H. pylori infection and celiac disease. The colonoscopy had two polyps which were removed and the pathology is pending -retail merchandising manager recommends omeprazole (prilosec) - it may be less expensive to buy this over the counter -follow up in gastroenterology clinic - they should be calling you to schedule -colonoscopy in 3 years for polyps You've got a rhinovirus infection - a "common cold" - this will resolve You have mild diverticulitis based on CT scan of the abdomen - this is a common condition where a part of the colon wall gets inflamed -we are treating this with a course of oral antibiotics For you hemorrhoids it may help to take a fiber supplement (like metamucil or citrucel) every day to help soften and bulk up your stool. If you're constipated you can also use miralax and/or senna as directed. These medications are available over the counter. The goal with hemorrhoids is to have very soft stools (like toothpaste) with no straining, to prevent flare-ups and bleeding. Other tests: kidney function panel - normal cholesterol panel - normal, not elevated TSH - thyroid function - was normal HgA1c - test for average blood sugar - 6.0% indicating some "prediabetes" - you're at risk for developing diabetes in the future this is reversible with healthy diet (emphasizing lean meats, whole grains, vegetables or a "Mediterranean" type diet), exercise, and even a small amount of weight loss Follow up to establish primary care as soon as possible It was a pleasure taking care of you in the hospital, Jeanie Lin MD Total Time Total Time Spent Total Time Spent (In Minutes): less than 30 minutes Coding Level of Care Code 57405 IN/OBS DISCH 30 MIN/LESS Diagnoses Anemia D64.9 Thrombocytosis D75.839 Tobacco use Z72.0 Hypokalemia E87.6 Rhinovirus B34.8
[2024-06-15 15:32] LABS: Partial Thromboplastin Time 27 Seconds (21-31)
== END 2024-06-15 15:55 | disposition home or self-care (01) | DRG 395 ==
LOC: ED 17:59 → 2S 20:10 → SUATTDRO 20:10 → 2S 20:58 → 3W 06-15 14:10